=== PATIENT | female | born 1970 | race Caucasian/White ===

== ENCOUNTER → 2017-05-17 | Outpatient (CLI) | payer OTHER ==
[~2017-05-17] MED LIST: CHOL100010 PO; PRENTAB26 PO
--- NOTE | 2017-05-17 13:54 | MAMMOGRAPHY REPORT ---
BILATERAL DIGITAL DIAGNOSTIC MAMMOGRAM TOMOSYNTHESIS WITH CAD AND TARGETED LEFT ULTRASOUND: 05/17/2017 CLINICAL HISTORY: The patient reports a lump and associated tenderness in the left breast for at leas t one year. She reports the tenderness is worse before her menstrual period. TECHNIQUE: Breast tomosynthesis in addition to standard 2D mammography was performed. Current study was also evaluated with a Computer Aided Detection (CAD) system. Bilateral CC and MLO 2D and tomosyn thesis images were obtained. COMPARISON: Comparison is made to exam dated: 03/14/2016 mammogram - [facility]. BREAST COMPOSITION: There are scattered areas of fibroglandular density in both breasts. FINDINGS: A triangular marker stephen the site of the palpable lump and tenderness reported by the arlene ent in the left upper outer quadrant. There are no suspicious masses or other suspicious mammographi c abnormalities noted in this region. The remainder of both breasts are stable mammographically comp ared to the prior exam, without suspicious masses, calcifications, or areas of architectural distorti on noted. A few scattered bilateral punctate benign-appearing calcifications are again noted. Targeted ultrasound was performed of the area of the tender palpable lump pointed out by the patient, in the left breast at 1:00 approximately 11 cm from the nipple. Sonographically normal tissue is se en in this region, without evidence of a mass or other suspicious sonographic abnormality. A morphol ogically normal left axillary lymph node is incidentally noted which measures 6 mm. IMPRESSION: ACR BI-RADS CATEGORY 2: BENIGN, TARGETED ULTRASOUND ACR BI-RADS CATEGORY 2: BENIGN No suspicious mammographic or sonographic abnormality at the site of the tender palpable lump pointed out by the patient in the left 1:00 breast. There is no mammographic or targeted sonographic eviden ce of malignancy. Recommend clinical follow-up for the left breast lump, and recommend routine bilat eral screening mammograms in one year. The patient has been verbally notified of the results. Approximately 10% of breast cancers are not detected with mammography. A negative mammographic report should not delay biopsy if a clinically suggestive mass is present. Emerita Whitney M.D. ah/:05/17/2017 11:57:27 Software Quality Manager: Maury WILLIAMSON)([place]), [facility] letter sent: Normal 1/2 BI-RADS Code: ACR BI-RADS Category 2: Benign Ultrasound BI-RADS: ACR BI-RADS Category 2: Benign
== END | disposition home or self-care (01) ==
LOC: C.MAMM 10:35
PROVIDERS: ATTEND Family Medicine
DX: N63.20 Unspecified lump in the left breast, unspecified quadrant (principal)